=== PATIENT | male | born 2000 | race Hispanic/Latino ===

== ENCOUNTER 2018-01-23 10:53 | Emergency (ER) | payer SELFPAY | END 2018-01-23 12:35 | disposition home or self-care (01) | LOC: EDH 10:53 | DX: S82.831A Other fracture of upper and lower end of right fibula, initial encounter for closed fracture (principal); X58.XXXA Exposure to other specified factors, initial encounter; Y93.89 Activity, other specified; Y92.488 Other paved roadways as the place of occurrence of the external cause; Y99.8 Other external cause status | CPT/HCPCS: 29515; 73590; 73610 ==

== ENCOUNTER 2018-01-29 09:35 | Observation (INO) | payer OTHER ==
[2018-01-26 11:59] LABS: BASOPHILS % (AUTO) 0.4 % (0.0-5.0); EOSINOPHILS % (AUTO) 2.7 % (0.0-8.0); HEMATOCRIT 43.4 % (42-54); LYMPHOCYTES % (AUTO) 16.9 % (21.0-51.0); MEAN CORPUSCULAR HEMOGLOBIN 27.9 pg (27.0-33.0); MEAN CORPUSCULAR HGB CONC 33.2 g/dL (32.0-36.0); MONOCYTES % (AUTO) 6.6 % (3.0-13.0); NEUTROPHILS % (AUTO) 73.4 % (40.0-77.0); PLATELET COUNT (AUTO) 242 K/uL (130-400); RED BLOOD CELL COUNT(AUTO) 5.16 MIL/uL (4.50-6.20); RED CELL DISTRIBUTION WIDTH 12.8 % (11.0-15.5); WHITE BLOOD COUNT (AUTO) 11.6 K/uL (4.8-10.8)
[2018-01-26 12:06] LABS: CREATININE 0.8 mg/dL (0.5-1.5); POTASSIUM 4.6 mmol/L (3.5-5.1)
[2018-01-26 12:13] VITALS: BP 146/85
[2018-01-29] VITALS (22 sets, daily range): BP systolic 110–160; BP diastolic 48–98
[~2018-01-29] VITALS: Ht 175.3 cm; Wt 104.3 kg
[~2018-01-29 09:35] MED LIST: CEFAZOLIN 3GM /D5W 100ML 100 ML IV ONE
[2018-01-29] MEDS ORDERED: LACTATED RINGERS 1000ML 1,000 ML IV ONE (10:20)
[2018-01-29] MEDS ORDERED: HYDR-309 PO (10:40)
[2018-01-29] MEDS ORDERED: CEFAZOLIN SODIUM 1 GM VIAL ONE ×2 (10:42→15:22)
[2018-01-29] MEDS ORDERED: LIDOCAINE PF 2% 5ML ABBOJECT ONE (13:36)
[2018-01-29] MEDS ORDERED: DEXAMETHASONE SOD PHOSPHATE 10MG/ML 1ML VIAL ONE (13:36)
[2018-01-29] MEDS ORDERED: GLYCOPYRROLATE 0.2 MG/ML 5 ML VIAL ONE (13:36)
[2018-01-29] MEDS ORDERED: PROPOFOL 10 MG/ML 20ML VIAL IV ONE (13:38)
[2018-01-29] MEDS ORDERED: MIDAZOLAM HCL 1 MG/ML 2ML VIAL ONE (13:38)
[2018-01-29] MEDS ORDERED: FENTANYL CITRATE PF 50 MCG/1 ML 2ML VIAL ONE ×2 (13:38→15:07)
[2018-01-29] MEDS ORDERED: ROPIVACAINE 0.5% 5MG/ML 30ML IJ ONE (13:40)
[2018-01-29] MEDS ORDERED: CALDOLOR 800MG+NS 250ML 250 ML IV ONE (13:40)
[2018-01-29] MEDS ORDERED: SUCCINYLCHOLINE CHLORIDE 20 MG/ML 10 ML VIAL ONE ×2 (16:24→16:25)
[2018-01-29] MEDS ORDERED: LIDOCAINE HCL 4% LTA SOL 4 ML VIAL ONE (16:24)
[2018-01-29] MEDS ORDERED: ROCURONIUM BROMIDE 10MG/1ML 5ML VL ONE ×2 (16:24)
[2018-01-29] MEDS ORDERED: OXYMETAZOLINE HCL SPRAY 15 ML BOTTLE ONE (16:25)
[2018-01-29] MEDS ORDERED: ONDANSETRON HCL MDV 20ML 2 MG/ML VIAL ONE (16:25)
[2018-01-29] MEDS ORDERED: PHENYLEPHRINE HCL 10 MG/ML 1ML VIAL IV ONE (16:26)
[2018-01-29] MEDS ORDERED: LIDOCAINE HCL 2% JELLY 5 ML ONE (16:38)
[2018-01-29] MEDS ORDERED: SODIUM CHLORIDE 0.9% 1000ML 1,000 ML IV SCH (16:38)
[2018-01-29] MEDS ORDERED: HYDROCODONE/ACETAMINOPHEN 5/325 MG TAB PO PRN ×3 (16:45→18:45)
[2018-01-29] MEDS ORDERED: KETOROLAC TROMETHAMINE 30MG/ML IV PRN (16:45)
[2018-01-29] MEDS ORDERED: DiphenhydrAMINE HCL 50 MG/ML VIAL IVP PRN (16:45)
[2018-01-29] MEDS ORDERED: MEPERIDINE-PF 25 MG/ML SYG ONE ×2 (16:54→17:13)
[2018-01-29] MEDS: ENOXAPARIN SODIUM 40 MG/0.4 ML SYRINGE SQ SCH (21:01)
[2018-01-29] MEDS: CEFAZOLIN 3GM /D5W 100ML 100 ML IV SCH (22:12)
[2018-01-30 04:00] VITALS: BP 128/53
[2018-01-30] MEDS: CEFAZOLIN 3GM /D5W 100ML 100 ML IV SCH (05:08)
[2018-01-30 07:00] VITALS: BP 122/52
[2018-01-30] MEDS ORDERED: ASPI-1026 PO (08:44)
[2018-01-30] MEDS: ENOXAPARIN SODIUM 40 MG/0.4 ML SYRINGE SQ SCH (09:12)
[2018-02-01] MEDS ORDERED: BISACODYL 10 MG SUPP.RECT RC PRN (16:45)
== END 2018-01-30 12:10 | disposition home or self-care (01) ==
LOC: DAH 09:35 → DAHIP 09:36 → 4BH 18:16
PROVIDERS: ADMIT Orthopaedic Surgery; ATTEND Orthopaedic Surgery
DX: S82.61XA Displaced fracture of lateral malleolus of right fibula, initial encounter for closed fracture (principal); V29.9XXA Motorcycle rider (driver) (passenger) injured in unspecified traffic accident, initial encounter; Y92.89 Other specified places as the place of occurrence of the external cause; Y93.89 Activity, other specified; Y99.8 Other external cause status
CPT/HCPCS: 27792; 36415; 76000; 80048; 85025; 96365; 96372 ×2; 96375; A4218; A4649 ×3; A4930; A6223; C1713 ×7; C1776; G0378 ×27; J0330 ×2; J0690 ×3; J1100; J1650 ×2; J1741; J2001; J2175 ×2; J2250; J2370; J2704; J2795; J3010 ×2; J3490 ×3; J7030; J7120 ×2; Q4051